=== PATIENT | male | born 1980 | race Hispanic/Latino ===

== ENCOUNTER 2016-10-30 14:51 | Emergency (ER) | payer OTHER ==
[~2016-10-30] VITALS: Ht 172.7 cm; Wt 136.5 kg
[2016-10-30 14:56] VITALS: BP 124/80
[2016-10-30] MEDS ORDERED: NEOMYCIN-POLYMY10 M1 OT (15:39)
--- NOTE | 2016-10-30 15:39 | ED EAR COMPLAINT ---
History of Present Illness General Chief Complaint: Ear Complaints Stated Complaint: LEFT EAR PAIN Source: patient, old records Exam Limitations: no limitations Vital Signs & Intake/Output Vital Signs & Intake/Output Vital Signs Date Time Temp Pulse Resp B/P Pulse O2 O2 Flow FiO2 Ox Delivery Rate 10/30 1456 97.0 96 20 124/80 98 Room Air Allergies Coded Allergies: No Known Allergies (10/30/16) Reconcile Medications Neomycin/Polymyxin B Sulf/Hc (Buexompn-Mhswhpkhq-Bk Ear Susp) 3.5 MG/ML-10,000 UNIT/ML-1 % DROPS.SUSP 4 GTT OT TID OTITIS Triage Note: PT C/O LEFT EAR PAIN X 1 WEEK. STATES HE PUT A Q-TIP IN TOO FAR Triage Nurses Notes Reviewed? yes Onset: Gradual Duration: intermittent, waxing and waning Timing: recent history Injury Environment: home Severity: moderate Severity Numbers: 5 No Modifying Factors: none Associated Symptoms: DENIES HPI: 36 -year-old male with no medical history presents complaining of one-week history of intermittent waxing and waning left ear pain that came on suddenly after cleaning his ear out with a Q-tip. He denies any discharge or bleeding however states pain has been mild to moderate aching nonradiating. He denies any fever chills or sore throat rhinorrhea. He has not taken anything for symptoms. No modifying factors no tinnitus no hearing loss no other injury or trauma he is otherwise without any complaints. He denies pain at this time. Past History Travel History Traveled to [place] past 21 day No Medical History Any Pertinent Medical History? none Surgical History Surgical History: none Psychosocial History What is your primary language Dutch Tobacco Use: Never used ETOH Use: occasional use Illicit Drug Use: denies illicit drug use Family History Hx Contributory? No Review of Systems Review of Systems Constitutional: Reports: see HPI. All Other Systems: Reviewed and Negative Comments Review of systems: See HPI, All other systems negative. Constitutional, no chills no fever, no malaise HEENT: No visual changes no sore throat no congestion Cardiovascular: No chest pain , no palpitation Skin, no jaundice no rashes, no change in skin Respiratory: No dyspnea no cough no sputum GI: No nausea no vomiting, Muscle skeletal: No joint pain, no joint swelling, no back pain, no neck pain, Neurologic: No numbness no headache Psych: No stress . Heme/endocrine: No bruising no bleeding Immunology: No lymphadenopathy Physical Exam Physical Exam General Appearance: well developed/nourished, no apparent distress, alert, awake , comfortable Ears: Left: swelling. Comments: Well-developed well-nourished patient in no apparent distress. Head/Face: Atraumatic, no maxillary/frontal sinus tenderness, no facial swelling Eyes: PERRL, EOMI, no conjunctival injection. No nystagmus Ear: The left external auditory canal is swollen there is no evidence of TM perforation no cerumen impaction or foreign body, fever right External auditory canal and Tympanic membrane clear, no erythema, no FB. Nose: atraumatic.Normal inspection Throat: Moist mucous membranes.Pharynx normal. No pharyngeal erythema/exudate seen. No stridor/drooling or assymetry. No swelling or edema. Neck: Supple, no lymphadenopathy, FROM Back: FROM, Nontender Cardiovascular: Regular rate and rhythms no murmurs Respiratory:No respiratory distress. Patient speaking in full complete sentences. Breath sounds clear to auscultation bilaterally: NO W/R/R Extremities: full range of motion Neuro: Alert and oriented x3 Skin: Warm & dry;No appreciable rash on exposed skin Psych: Mood affect normal, normal memory normal judgment. Progress Differential Diagnoses I considered the following diagnoses in my evaluation of the patient: TM perforation otitis externa otitis media Plan of Care: I had an extensive conversation regarding need for close follow up with their primary care physician this week as well as return precautions. I answered all of their questions, they feel comfortable with the plan and follow-up care. I discussed the medications that they will receive with the patient. I gave them signs and symptoms that could indicate an adverse reaction. I have advised them to limit their activities until they can see how they respond to the medication. Initial ED EKG: none Departure Departure Time of Disposition: 1536 Disposition: HOME OR SELF CARE Condition: Stable Clinical Impression Primary Impression: Otitis externa Referrals: PATIENT HAS NO PRIMARY CARE DR (PCP/Family) Additional Instructions: follow up with your pmd this week. tylenol or motrin as needed. Departure Forms: Customer Survey General Discharge Information Prescriptions: Current Visit Scripts Neomycin/Polymyxin B Sulf/Hc (Bamcifwu-Ljpiwxklp-Jh Ear Susp) 4 GTT OT TID #10 ML
== END 2016-10-30 15:37 ==
LOC: ERH 14:51
DX: H60.92 Unspecified otitis externa, left ear (principal)

== ENCOUNTER 2017-08-17 00:35 | Emergency (ER) | payer OTHER ==
[~2017-08-17 00:35] MED LIST: NEOMYCIN-POLYMY10 M1 OT
--- NOTE | 2017-08-17 01:03 | ED CARDIAC/CP/PALPITATIONS ---
History of Present Illness General Chief Complaint: General Adult Stated Complaint: "I FEEL HEAVY ON MY RIGHT SIDE CHEST" Source: patient Exam Limitations: no limitations Vital Signs & Intake/Output Vital Signs & Intake/Output Vital Signs Date Time Temp Pulse Resp B/P B/P Pulse O2 O2 Flow FiO2 Mean Ox Delivery Rate 08/17 0810 98.1 88 20 145/80 98 Room Air 08/17 0407 99.0 81 20 116/72 97 Room Air 08/17 0206 100 18 121/71 08/17 0051 97.2 119 22 161/78 97 Room Air Allergies Coded Allergies: No Known Allergies (10/30/16) Reconcile Medications Ibuprofen 600 MG TABLET 1 TAB PO Q6PRN PRN pain with food Neomycin/Polymyxin B Sulf/Hc (Andxnexi-Yrvbwvhgj-Tn Ear Susp) 3.5 MG/ML-10,000 UNIT/ML-1 % DROPS.SUSP 4 GTT OT TID OTITIS Triage Note: PER PT STARTED AT 2000 WITH RT BREAST PAIN AT 2300 UPON GOING TO BED PT DEVELOPED HEAVINESS TO SAME AREA AND HAS NOT GONE AWAY NO SOB NO NAUSEA NON RADIATING Triage Nurses Notes Reviewed? yes Onset: Abrupt Duration: hour(s): (FEW) Timing: single episode today Location: RIGHT CHEST Radiation: no radiation Activities at Onset: rest Aspirin Today: no aspirin today HPI: This is a 37-year-old male with morbid obesity presents via chief complaint of sudden onset of right chest heaviness that started around 11:00 while he was watching TV. Pain is worse with laying flat. No fever cough or shortness of breath palpitations or diaphoresis. It is worse with position and deep breath. No recent trauma, no recent URI or sore throat symptoms. No history of chest pain in the past. He did not take anything at home for pain. He states he tried to go to bed but felt worse as well as with some nausea and decided to come to the ER for evaluation. He denies any illicit substance or tobacco abuse. Denies any significant family history other than hypertension. (Jt CARDENAS,Monica) Past History Travel History Traveled to [place] past 21 day No Medical History Any Pertinent Medical History? see below for history Neurological: NONE EENT: NONE Cardiovascular: NONE Respiratory: NONE Gastrointestinal: NONE Hepatic: NONE Renal: NONE Musculoskeletal: NONE Psychiatric: NONE Endocrine: NONE Other Medical Hx: OBESITY Surgical History Surgical History: none Psychosocial History What is your primary language Albanian Tobacco Use: Never used Family History Hx Contributory? Yes (Monica Waters MD) Review of Systems Review of Systems Constitutional: Denies: chills, fever. EENTM: Denies: throat pain. Respiratory: Denies: cough, short of breath, sputum production. Cardiovascular: Reports: chest pain. Denies: palpitations, peripheral edema, syncope. (Monica Waters MD) Physical Exam Physical Exam General Appearance: well developed/nourished, alert, awake, anxious, moderate distress, obese Head: atraumatic, normal appearance Eyes: Bilateral: normal appearance, PERRL, EOMI. Ears, Nose, Throat: normal pharynx, normal ENT inspection, hearing grossly normal Neck: normal inspection, supple, full range of motion Respiratory: normal breath sounds, chest non-tender, no respiratory distress Cardiovascular: regular rate/rhythm Peripheral Pulses: 2+ radial (R), 2+ radial (L) Gastrointestinal: normal bowel sounds, soft, non-tender, OBESE Extremities: normal inspection, normal capillary refill, normal range of motion, no edema Neurologic/Psych: no motor/sensory deficits, awake, alert, oriented x 3 Skin: intact, normal color, warm/dry (Monica Waters MD) Core Measures ACS in differential dx? No CVA/TIA Diagnosis No Sepsis Present: No Sepsis Focused Exam Completed? No (James Logan MD) Progress Differential Diagnosis: AMI, aortic dissection, costochondritis, musculoskeletal pain, myocarditis, pericarditis, pneumonia, pneumothorax, pulmonary embolism, PUD/GERD, unstable angina Plan of Care: Orders Procedure Date/time Status Heart Healthy Diet 08/17 B Active TROPONIN LEVEL 08/17 0400 Complete EKG 08/17 0400 Active PARTIAL THROMBOPLASTIN TIME 08/17 0134 Complete PROTHROMBIN TIME 08/17 0134 Complete D-DIMER 08/17 0134 Complete Telemetry/Managed Care Coordinator 08/17 0102 Active LIPASE 08/17 0055 Complete URINE DRUGS OF ABUSE 08/17 0044 Complete TROPONIN LEVEL 08/17 0044 Complete COMPREHENSIVE METABOLIC PANEL 08/17 0044 Complete CBC WITHOUT DIFFERENTIAL 08/17 0044 Complete EKG 08/17 0044 Active Laboratory Tests 08/17/17 0405: Troponin I < 0.01 08/17/17 0143: Urine Opiates Screen < 100.00, Methadone Screen < 40, Barbiturate Screen < 60, Ur Phencyclidine Scrn < 6.00, Amphetamines Screen < 100, U Benzodiazepines Scrn < 85, Urine Cocaine Screen < 50, Urine Cannabis Screen < 5.00 08/17/17 0138: PT 11.4, INR 1.09, APTT 31, D-Dimer High Sensitivty < 200 08/17/17 0055: Anion Gap 13, Estimated GFR > 60, BUN/Creatinine Ratio 12.9, Glucose 116 H, Calcium 8.9, Total Bilirubin 0.2, AST 34, ALT 71, Alkaline Phosphatase 112, Troponin I < 0.01, Total Protein 6.6, Albumin 3.8, Globulin 2.8, Albumin/ Globulin Ratio 1.4, Lipase 84, CBC w Diff NO MAN DIFF REQ, RBC 5.66, MCV 80.4, MCH 27.0, MCHC 33.6, RDW 13.4, MPV 8.1, Gran % 57.6, Lymphocytes % 27.5, Monocytes % 11.5 H, Eosinophils % 3.0, Basophils % 0.4, Absolute Granulocytes 6.2, Absolute Lymphocytes 3.0, Absolute Monocytes 1.2 H, Absolute Eosinophils 0.3, Absolute Basophils 0 NO RELIEF AFTER NITROGLYCERIN. TORADOL, GI COCKTAIL ORDERED. 4:20 AM REPEAT EKG READING ACUTE LATERAL IN. NO CHEST PAIN AT THIS TIME, RESOLVED AFTER IV TORADOL AND GI COCKTAIL. DIFFUSE ST ELEVATION ON EKG, QUESTION PERICARDITIS. NO INDICATION TO ACTIVATE PAMI. REPEAT TROPONIN PENDING. WILL CONSULT CARDIOLOGY IN AM TO SEE PATIENT 5:27 AM PATIENT REMAINS PAIN FREE. REPEAT TROPONIN NEGATIVE. WILL REQUEST CARDIOLOGY TO EVALUATE PATIENT IN ED. Diagnostic Imaging: Viewed by Me: Radiology Read. Discussed w/RAD: Radiology Read. CXR Impression: PATIENT: HALEY HERMAN PRESENT AGE: 37 PATIENT ACCOUNT NO: [id number] : 82 LOCATION: [facility] ORDERING PHYSICIAN: Monica Waters MD SERVICE DATE: 08/17/17 EXAM TYPE: RAD - XRY-CHEST XRAY , TWO VIEWS EXAMINATION: XR CHEST CLINICAL INFORMATION: Chest pain, pericarditis COMPARISON: None TECHNIQUE: 2 views of the chest were obtained. FINDINGS: Lung volumes are low. Mild interstitial prominence. Bronchial wall thickening. No pleural effusion or pneumothorax. No dense consolidation. The cardiomediastinal silhouette is unremarkable for this technique. No acute osseous abnormality. IMPRESSION: Bronchial wall thickening with interstitial prominence could be associated with a small airways process or fluid overload. No pleural effusion. DICTATED BY: Gordo Roberts MD DATE/TIME DICTATED:08/17/17527 ROD AND TUBE STRAIGHTENER:GERMAN DATE/TIME TRANSCRIBED:08/17/17527 CONFIDENTIAL, DO NOT COPY WITHOUT APPROPRIATE AUTHORIZATION. <Electronically signed in Other Vendor System> SIGNED BY: Gordo Roberts MD 08/17/17531 Initial ED EKG: sinus tach @ 101 bpm Repeat EKG: changed (DIFFUSE ST ELEVATION) Hand-Off Endorsed To: James Logan MD Endorsed Time: 0700 Pending: consult (CARDIOLOGY) (Monica Waters MD) Comments: Cleared by cardiology for discharge. (James Logan MD) Departure Departure Condition: Stable Departure Forms: Customer Survey General Discharge Information (Monica Waters MD) Departure Time of Disposition: 1134 Disposition: HOME OR SELF CARE Clinical Impression Primary Impression: Pericarditis Secondary Impressions: Chest pain at rest Referrals: Ky Peralta MD Prescriptions: Current Visit Scripts Ibuprofen 1 TAB PO Q6PRN PRN pain #50 TAB with food (James Logan MD) Critical Care Note Critical Care Note Critical Care Time: 30-74 min (40) (James Logan MD)
[2017-08-17 01:04] LABS: ABSOLUTE BASOPHIL COUNT 0 /CUMM (0.0-0.2); ABSOLUTE EOSINOPHIL COUNT 0.3 /CUMM (0.0-0.7); ABSOLUTE GRANULOCYTE CT 6.2 /CUMM (1.4-6.5); ABSOLUTE MONOCYTE COUNT 1.2 /CUMM (0.10-0.60); BASOPHIL % 0.4 % (0.0-2.0); GRANULOCYTE % 57.6 % (42.2-75.2); HEMATOCRIT 45.5 % (42-52); MEAN CORPUSCULAR HGB CONC 33.6 G/DL (33.0-37.0); MEAN CORPUSCULAR VOLUME 80.4 FL (80.0-94.0); MEAN PLATELET VOLUME 8.1 FL (7.4-10.4); PLATELET COUNT 248 /CUMM (130-400); RBC DISTRIBUTION WIDTH 13.4 % (11.5-14.5); RED BLOOD CELL CT 5.66 /CUMM (4.70-6.10); WHITE BLOOD CELL COUNT 10.7 /CUMM (4.8-10.8)
[2017-08-17 02:03] LABS: PT 11.4 SEC (9.4-12.5); PTT 31 SEC (25-37)
--- NOTE | 2017-08-17 05:32 | RADIOLOGY REPORT ---
EXAMINATION: XR CHEST CLINICAL INFORMATION: Chest pain, pericarditis COMPARISON: None TECHNIQUE: 2 views of the chest were obtained. FINDINGS: Lung volumes are low. Mild interstitial prominence. Bronchial wall thickening. No pleural effusion or pneumothorax. No dense consolidation. The cardiomediastinal silhouette is unremarkable for this technique. No acute osseous abnormality. IMPRESSION: Bronchial wall thickening with interstitial prominence could be associated with a small airways process or fluid overload. No pleural effusion.
--- NOTE | 2017-08-17 10:52 | Cons- Cardiology ---
General Information and HPI Consulting Request Date of Consult: 08/17/17 Requested By: Dr. Waters Reason for Consult: Chest pain History of Present Illness: The patient is a 37-year-old male with no cardiac history who presents with chest pain. The pain began early this morning. It is a right-sided pain that was initially a sharp pain and later became a heaviness. It was initially a 3 out of 10, and later increased to a 9 out of 10. There is no radiation of the pain. The pain was worse with lying down and improved with sitting up. There is no response of the pain to nitroglycerin. The pain resolved within one hour after a dose of IV Toradol. The pain resolved approximately 5 hours ago. He is now completely pain-free and asymptomatic. He has not had similar pain in the past. He does not have any history of cardiac disease. No nausea or vomiting. No palpitations. No syncope. No orthopnea. No lightheadedness or dizziness. No nausea or vomiting. No diaphoresis. Allergies/Medications Allergies: Coded Allergies: No Known Allergies (10/30/16) Home Med List: Neomycin/Polymyxin B Sulf/Hc (Eghxzpfr-Liazmcgdl-Jx Ear Susp) 3.5 MG/ML-10,000 UNIT/ML-1 % DROPS.SUSP 4 GTT OT TID OTITIS Current Medications: Current Medications Sig/Paula Start time Last Medication Dose Route Stop Time Status Admin Aspirin 0 .STK-MED ONE 08/17 0213 DC PO Aspirin 325 MG ONCE ONE 08/17 0115 DC 08/17 PO 08/17 115 0209 Ketorolac 30 MG ONCE ONE 08/17 0330 DC 08/17 Tromethamine IV 08/171 0324 Ketorolac 0 .STK-MED ONE 08/17 0325 DC Tromethamine .ROUTE Ketorolac 0 .STK-MED ONE 08/17 0242 DC Tromethamine .ROUTE Nitroglycerin 0.4 MG ONCE ONE 08/17 0115 DC 08/17 SL 08/17 115 0156 Review of Systems Review of Systems: No rash. No tremor. No fever. No chills. All other systems were reviewed, and were noted to be negative. Past History Travel History Traveled to [place] past 21 day No Medical History Neurological: NONE EENT: NONE Cardiovascular: NONE Respiratory: NONE Gastrointestinal: NONE Hepatic: NONE Renal: NONE Musculoskeletal: NONE Psychiatric: NONE Endocrine: NONE Other Medical Hx: OBESITY Surgical History Surgical History: 1 Family History Relations & Conditions If Any: MOTHER Colon cancer Psychosocial History Smoking Status: Never Smoked Exam & Diagnostic Data Vital Signs and I&O Vital Signs Date Time Temp Pulse Resp B/P B/P Pulse O2 O2 Flow FiO2 Mean Ox Delivery Rate 08/17 0810 98.1 88 20 145/80 98 Room Air 08/17 0407 99.0 81 20 116/72 97 Room Air 08/17 0206 100 18 121/71 08/17 0051 97.2 119 22 161/78 97 Room Air Intake & Output 08/17 1600 08/17 0800 08/17 0000 08/16 1600 08/16 0800 08/16 0000 Intake Total 0 Output Total Balance 0 Intake, Oral 0 Patient 320 lb Weight Physical Exam: Gen: The patient is in no acute distress HEENT: Normal nose, ears, and oropharynx. Pupils equal bilaterally. Conjunctiva normal. Neck: Supple with no JVD, no masses, and no thyromegaly Lungs: Clear to auscultation with normal respiratory effort Heart: RRR, S1, S2, no murmurs. No peripheral edema, 2+ pulses in the lower extremities bilaterally Abdomen: Soft, nontender, no masses. No hepatomegaly. No splenomegaly Extremities: No clubbing or cyanosis. Normal muscle strength in the upper and lower extremities Skin: Normal skin turgor with no skin ulcers or lesions noted. Neuro: Cranial nerves intact. Sensation intact Psych: Alert and oriented 3 with appropriate affect Labs/Gerardo Results: Laboratory Tests 08/17 08/17 08/17 0405 0143 0138 Chemistry Troponin I (<0.11 ng/ml) < 0.01 Coagulation PT (9.4 - 12.5 SEC) 11.4 INR (0.90 - 1.17) 1.09 APTT (25 - 37 SEC) 31 D-Dimer High Sensitivty (0 - 243 ng/ml) < 200 Toxicology Urine Opiates Screen (>2000 NG/ML) < 100.00 Methadone Screen (>300 NG/ML) < 40 Barbiturate Screen (>200 NG/ML) < 60 Ur Phencyclidine Scrn (>25 NG/ML) < 6.00 Amphetamines Screen (>1000 NG/ML) < 100 U Benzodiazepines Scrn (>200 NG/ML) < 85 Urine Cocaine Screen (>300 NG/ML) < 50 Urine Cannabis Screen (>50 NG/ML) < 5.00 08/17 0055 Chemistry Sodium (137 - 145 mmol/L) 145 Potassium (3.5 - 5.1 mmol/L) 3.9 Chloride (98 - 107 mmol/L) 105 Carbon Dioxide (22 - 30 mmol/L) 27 Anion Gap (5 - 16) 13 BUN (9 - 20 mg/dL) 9 Creatinine (0.7 - 1.2 mg/dL) 0.7 Estimated GFR (>60 ml/min) > 60 BUN/Creatinine Ratio (7 - 25 %) 12.9 Glucose (65 - 99 mg/dL) 116 H Calcium (8.4 - 10.2 mg/dL) 8.9 Total Bilirubin (0.2 - 1.3 mg/dL) 0.2 AST (17 - 59 U/L) 34 ALT (21 - 72 U/L) 71 Alkaline Phosphatase (< 127 U/L) 112 Troponin I (<0.11 ng/ml) < 0.01 Total Protein (6.3 - 8.2 g/dL) 6.6 Albumin (3.5 - 5.0 g/dL) 3.8 Globulin (1.9 - 4.2 gm/dL) 2.8 Albumin/Globulin Ratio (1.1 - 2.2 %) 1.4 Lipase (23 - 300 U/L) 84 Hematology CBC w Diff NO MAN DIFF REQ WBC (4.8 - 10.8 /CUMM) 10.7 RBC (4.70 - 6.10 /CUMM) 5.66 Hgb (14.0 - 18.0 G/DL) 15.3 Hct (42 - 52 %) 45.5 MCV (80.0 - 94.0 FL) 80.4 MCH (27.0 - 31.0 PG) 27.0 MCHC (33.0 - 37.0 G/DL) 33.6 RDW (11.5 - 14.5 %) 13.4 Plt Count (130 - 400 /CUMM) 248 MPV (7.4 - 10.4 FL) 8.1 Gran % (42.2 - 75.2 %) 57.6 Lymphocytes % (20.5 - 51.1 %) 27.5 Monocytes % (1.7 - 9.3 %) 11.5 H Eosinophils % (0 - 5 %) 3.0 Basophils % (0.0 - 2.0 %) 0.4 Absolute Granulocytes (1.4 - 6.5 /CUMM) 6.2 Absolute Lymphocytes (1.2 - 3.4 /CUMM) 3.0 Absolute Monocytes (0.10 - 0.60 /CUMM) 1.2 H Absolute Eosinophils (0.0 - 0.7 /CUMM) 0.3 Absolute Basophils (0.0 - 0.2 /CUMM) 0 Diagnostic Data EKG Results EKG tracing independently reviewed, and reveals sinus rhythm at 76, borderline inferior Q waves, mild nonspecific ST elevation, consider pericarditis CXR Results Bronchial wall thickening with interstitial prominence could be associated with a small airways process or fluid overload. No pleural effusion. Assessment/Plan Assessment/Plan Assessment: The patient is a 37-year-old male with no cardiac history presenting with right- sided chest pain that is improved with sitting up. EKG shows mild changes consistent with possible pericarditis. The pain has resolved completely with Toradol and he is now been pain-free for 4 hours. Recommendations: * The patient is clear for discharge from cardiac standpoint for outpatient follow-up. * Ibuprofen 600 mg by mouth by mouth every every 8 hours as needed for further chest pain. * Call with further chest pain. * Follow up in the office this week. Echocardiogram will be arranged as outpatient. Consult Acknowledgment - Thank you for your consult request.
[2017-08-17] MEDS ORDERED: IBUPROFEN600 M1 PO (11:36)
[2017-08-17 11:44] VITALS: BP 132/85
== END 2017-08-17 11:44 ==
LOC: ERH 00:35
PROVIDERS: Emergency Medicine
DX: I31.9 Disease of pericardium, unspecified (principal); R07.9 Chest pain, unspecified
CPT/HCPCS: 71046; 80307; 93005; 93010; 96374; J1885